=== PATIENT | female | born 1950 | race Caucasian/White ===

== ENCOUNTER → 2019-05-12 | Outpatient (CLI) | payer MEDICARE ==
[2019-05-12 15:52] VITALS: BP 143/73; PULSE 66; RESP 18; TEMP 98.2
--- NOTE | 2019-05-12 15:55 | P.GSHP ---
History of Present Illness H&P Date: 05/12/19 Chief Complaint: suspecious calcification in the left breast Mildred is a 69-year-old white female who on a routine mammogram was noted to have an area of microcalcification in the left breast between the 12 and 1 o'clock position. She does not feel anything of concern in her breast. Her last mammogram was approximately 8 years ago. The patient has not had any history of any trauma or infection to her breast. She's never had a breast biopsy. Family history: 1. father: lung cancer, leukemia Hormonal history: Menarche: 12 , breast fed: yes, first born at 22 menpause: 23 complete hysterectomy, no cancer BCP: 1 year hormones: none Surgical history: 1. Total abdominal hysterectomy at the age of 23 2. Cholecystectomy 3. Tonsillectomy 4. Back surgery 5. Bilateral cysts removed from her wrist 6. TMJ 7. Thyroid resection Medical history: 1. HTN 2. diabetic Social History: smoke 1 1/2 PPD for 40 eyars alcohol: wine occasional drugs: none - Constitutional Constitutional: Denies chills, Denies fever - EENT Eyes: denies blurred vision, denies pain Ears: deny: decreased hearing, tinnitus Ears, nose, mouth and throat: Denies headache, Denies sore throat - Breasts Breasts: bilateral: as per HPI - Cardiovascular Comment: Leaking valve Cardiovascular: Reports high blood pressure - Respiratory Comment: smoker, - Gastrointestinal Gastrointestinal: Denies abdominal pain, Denies diarrhea, Denies nausea, Denies vomiting - Genitourinary (Female) Genitourinary: Denies dysuria, Denies hematuria - Menstruation Menstruation: Reports post hysterectomy - Musculoskeletal Comment: arthritis - Integumentary Integumentary: Denies pruritus, Denies rash - Neurological Neurological: Denies numbness, Denies weakness - Psychiatric Psychiatric: Denies anxiety, Denies depression - Endocrine Comment: diabetes - Hematologic/Lymphatic Comment: none - Allergic/Immunologic Comment: none Surgical - Exam BMI 23.8 - General well developed, well nourished, no distress - Eyes normal ocular movement - ENT no hearing loss, no congestion - Neck no masses, trachea midline - Respiratory normal respiratory effort, clear to auscultation - Cardiovascular Rhythm: regular Heart Sounds: normal: S1, S2 - Abdomen Abdomen: soft, non tender, no guarding, no rigid, no rebound - Integumentary yvon turgor - Neurologic no disoriented, no combative - Musculoskeletal normal gait, normal posture - Psychiatric oriented to time, oriented to person, oriented to place, speech is normal, memory intact Breast exam: Right breast: Multi-positional exam no dominant masses or nodules of concern Right axilla: No adenopathy of concern Left breast: Multiple positional exam fibrocystic changes no dominant masses or nodules of concern Left axilla: No adenopathy of concern Results Mammogram report reviewed Assessment and Plan Assessment: Impression: 1.Abnormal mammogram 2. Fibrocystic breast changes 3. Family history of cancer 4. Nicotine dependence 5. Diabetes 6. Hypertension Plan: 1. Stereotactic core biopsy of the left breast for microcalcifications 2. Medical management of medical conditions Cc: Emilie Swann, Dr. Love Allred
== END | disposition home or self-care (01) ==
LOC: WWCWWP 14:55
PROVIDERS: ATTEND Surgery
DX: Z53.9 Procedure and treatment not carried out, unspecified reason (principal)

== ENCOUNTER → 2019-05-23 | Day surgery (SDC) | payer MEDICARE ==
[2019-05-23 07:22] VITALS: RESP 16; BMI 23.8
--- NOTE | 2019-05-23 08:41 | P.OP ---
Date of Procedure: 05/23/19 Preoperative Diagnosis: Mammographic abnormality left breast Postoperative Diagnosis: Same Procedure(s) Performed: Stereotactic core biopsy left breast Anesthesia: local Surgeon: Kerry Rodriguez Estimated Blood Loss (ml): 0 Pathology: other (Breast tissue) Condition: stable Disposition: same day Indications for Procedure: Microcalcifications of concern upper outer quadrant left breast Operative Findings: Microcalcifications noted in core biopsy Description of Procedure: The patient is a 69-year-old white female with a radiographic abnormality of microcalcifications of concern in her left breast. Stereotactic core biopsy was recommended. Risks and benefits of the procedure were discussed with the patient and she wished to proceed. The patient was taken to the stereotactic core room and positioned on the stereo tactic core biopsy table. A coffee supervisor film was obtained which identified the area of concern. A CC from above approach was utilized. The area was targeted. The breast was prepped using Betadine. 20 mL of 1% lidocaine were used to anesthetize the area. 10 mL were plain lidocaine and 10 mL were one percent lidocaine with epinephrine. The area was anesthetized. A 9-gauge vacuum- assisted core biopsy needle was inserted to the correct coordinates. Prefire films were obtained. The needle was noted to be in the correct location. Post fire films were obtained. 8 core biopsies were then obtained. Radiograph of the specimen revealed microcalcifications of concern had been removed. A secure licha Top-tree marker was placed. Radiograph revealed this was in the correct location. The specimen was sent to pathology. The patient will follow-up with Dr. Norwood next week. The patient tolerated the procedure in stable condition.
[2019-05-23 08:50] VITALS: BP 123/65; PULSE 67; TEMP 98.2
--- NOTE | 2019-05-23 18:33 | MM ---
EXAMINATION TYPE: MG stereo VAD BX LT DATE OF EXAM: 05/23/2019 COMPARISON: 04/10/2019 and 04/04/2019 CLINICAL HISTORY: 69-year-old female referred for stereotactic core needle biopsy of one o'clock left breast microcalcifications. TECHNIQUE: Stereotactic guided core biopsy of the left breast. FINDINGS: The procedure of stereotactic guided core biopsy was explained to the patient. Benefits, alternatives, and risks were discussed. An informed consent was then obtained. [facility]. Shortness pathway was a CC from above approach. I performed the localization, then surgeon, Dr. Cuco Granger performed the remainder of the procedure. A vacuum assisted biopsy gun was used to obtain multiple core samples. The patient tolerated the procedure well without any immediate complication. The patient was kept in the radiology department for short stay after the procedure and then discharged home in stable condition. Targeted calcifications are identified in specimen mammogram. Post biopsy mammogram shows the clip to appear in satisfactory position relative to the targeted area of concern on the preprocedure images. IMPRESSION: SUCCESSFUL, UNCOMPLICATED STEREOTACTIC GUIDED CORE BIOPSY OF ONE O'CLOCK LEFT BREAST MICROCALCIFICATIONS; FULL PATHOLOGY RESULTS TO FOLLOW. Pathology Results: Benign LEFT BREAST, STEREOTACTIC NEEDLE CORE BIOPSIES: Small nodular scar with coarse calcification. Recommendation Follow up mammogram of the left breast in 6 months. STACY
== END | disposition home or self-care (01) ==
LOC: RADMAMWWP 06:55
PROVIDERS: ATTEND Surgery
DX: R92.0 Mammographic microcalcification found on diagnostic imaging of breast (principal)
CPT/HCPCS: 88305; 19081; A4648; J2001

== ENCOUNTER → 2019-06-02 | Outpatient (CLI) | payer MEDICARE ==
[2019-06-02 11:24] VITALS: BP 169/75; PULSE 59; RESP 18; TEMP 97.9; BMI 23.8
--- NOTE | 2019-06-02 11:36 | P.PN ---
Subjective Progress Note Date: 06/02/19 Principal diagnosis: [place] [id number] Mildred is a 69-year-old white female status post her to a biopsy of an area of concern in the left breast on [id number]. Pathology revealed small nodular scar with coarse calcifications. The patient has no complaints related to the procedure. Objective - Vital Signs Vital signs: Vital Signs Temp 97.9 F 06/02/19 11:22 Pulse 59 L 06/02/19 11:22 Resp 18 06/02/19 11:22 BP 169/75 06/02/19 11:22 Pulse Ox 99 06/02/19 11:22 Intake & Output 06/01/19 06/02/19 06/02/19 18:59 06:59 18:59 Weight 58.967 kg - Exam BMI 23.8 - Constitutional General appearance: Present: average body habitus - EENT Eyes: Present: EOMI ENT: Present: hearing grossly normal - Neck Neck: Present: normal ROM - Respiratory Respiratory: bilateral: CTA - Cardiovascular Rhythm: regular Heart sounds: normal: S1, S2 - Integumentary Integumentary Comment(s): Biopsy site left breast clean and dry No evidence of any infection Small hematoma Integumentary: Present: normal turgor - Musculoskeletal Musculoskeletal: Present: gait normal - Psychiatric Psychiatric: Present: A&O x's 3, appropriate affect, intact judgment & insight Assessment and Plan Assessment: Impression: 1. Patient status post stereo core biopsy left breast pathology benign 2. Fibrocystic breast changes 3. Hypertension 4. Diabetes Plan: 1. Repeat left breast mammogram and exam in 6 months 2. Follow up sooner if any questions of concern 3. Medical management of medical conditions Cc: Emilie Tejada nurse practitioner
== END ==
LOC: WWCWWP 10:34
PROVIDERS: ATTEND Surgery
DX: Z53.9 Procedure and treatment not carried out, unspecified reason (principal)

== ENCOUNTER → 2019-12-20 | Outpatient (CLI) | payer MEDICARE ==
--- NOTE | 2019-12-20 15:05 | MM ---
Reason for exam: follow-up at short interval from prior study. Last mammogram was performed 7 months ago. History: Benign MG stereo VAD BX LT of the left breast, May 23, 2019. Physical Findings: Nurse Summary: 1cm nodule in the left breast at 6 o'clock (nurse chula). MG Diagnostic Mammo LT w CAD CC and MLO view(s) were taken of the left breast. Prior study comparison: May 23, 2019, mammogram. April 04, 2019, mammogram. Previous mammotome biopsy in the left breast. No significant new findings when compared with previous films. These results were verbally communicated with the patient and result sheet given to the patient on 12/20/19. ASSESSMENT: Incomplete: need additional imaging evaluation, BI-RAD 0 RECOMMENDATION: Ultrasound of the left breast. (palpable abnormality)
--- NOTE | 2019-12-20 15:06 | USB ---
Reason for exam: additional evaluation requested from abnormal screening. History: Benign MG stereo VAD BX LT of the left breast, May 23, 2019. US Breast Limited LT Left limited breast ultrasound including focal area of concern, retroareolar and axilla demonstrates a 0.3 x 0.3 x 0.2cm cystic lesion at 4 o'clock, does not correlate with palpable. These results were verbally communicated with the patient and result sheet given to the patient on 12/20/19. ASSESSMENT: Probably benign, BI-RAD 3 RECOMMENDATION: Follow-up diagnostic mammogram of the left breast in 6 months. Manage on a clinical basis with regard to palpable abnormality.
== END | disposition home or self-care (01) ==
LOC: RADMAMWWP 13:30
PROVIDERS: ATTEND Surgery
DX: R92.8 Other abnormal and inconclusive findings on diagnostic imaging of breast (principal)
CPT/HCPCS: 77065